=== PATIENT | male | born 1985 | race African-American/Black ===

== ENCOUNTER 2023-06-05 12:41 | Emergency (ER) | payer OTHER ==
[2023-06-05 13:09] VITALS: BP 127/72; PULSE 90; RESP 18; TEMP 98.3; BMI 21.4
== END 2023-06-05 14:13 | disposition home or self-care (01) ==
LOC: JER 12:41
DX: T15.91XA Foreign body on external eye, part unspecified, right eye, initial encounter (principal); H53.71 Glare sensitivity; H57.11 Ocular pain, right eye
CPT/HCPCS: 99282-25